=== PATIENT | female | born 1955 ===

== ENCOUNTER 2017-01-26 11:55 | Emergency (ER) | payer MEDICARE, MEDICAID ==
[~2017-01-26] VITALS: Ht 162.6 cm; Wt 87.4 kg
[2017-01-26 11:57] VITALS: BP 155/87; PULSE 90; RESP 16; O2SAT 99
--- NOTE | 2017-01-26 12:07 | ED.REPORT ---
HPI-General Illness Date of Service Jan 26, 2017 ED Provider: Juaquin Amador MD 61 year old female with a history of UTI presents to the ER complaining of a week of dysuria. Associated symptoms include urinary frequency, urinary urgency , low abdominal pain, productive cough with sputum, subjective fever, and nausea. Patient denies back pain and vomiting. She is a poor historian. Nursing Notes Stated Complaint: BLADDER ISSUES Chief Complaint: General Complaint Nursing Notes Reviewed: Yes Allergies: Coded Allergies: codeine (Verified Allergy, Severe, 08/06/09) iodine (Verified Allergy, Mild, HIVES, 08/06/09) Uncoded Allergies: Codeine (Allergy, Severe, 06/24/04) Iodine (Allergy, Mild, HIVES, 06/24/04) Scheduled Cephalexin (Keflex) 500 Mg Capsule 500 MG PO QID General Time Seen by MD: 12:04 Chief Complaint Other (Dysuria) Hx Obtained From: Patient Arrived By: Walk-in Sudden in Onset?: No Onset Occurred: 1 week ago Symptom Duration: Since onset Associated with: Reports: Nausea, Denies: Vomiting Similar Sx Previous: Yes Past Medical History Past Medical History Rheumatoid arthritis Degenerative disk disease Left renal cancer Reports: Asthma, Diabetes mellitus, Hypertension Past Surgical History Left partial nephrectomy Reports: , Cholecystectomy, Hysterectomy Smoking History Current Every Day Smoker Ambulatory Status Independent Review of Systems +Productive Cough Full Review of Systems Constitutional: Reports: Fever (subjective), Malaise GI: Reports: Abdominal pain, Nausea, Denies: Constipation, Diarrhea, Vomiting Female: Reports: Dysuria, Urinary frequency, Urinary urgency, Denies: Flank pain Musculoskeletal: Denies: Back pain, Lumbar pain Complete sys rev & neg: except as marked. Physical Exam Vital Signs Vital Signs Date Time Temp Pulse Resp B/P Pulse Ox O2 Delivery O2 Flow Rate FiO2 01/26/17 11:57 36.4 90 16 155/87 99 Room Air Initial VS: Reviewed Head / Eyes: Atraumatic, Normocephalic Neck: Supple, Non-tender, Full range of motion Extremities: Vascular intact, Neuro intact, No swelling, No tenderness Skin: Warm, Dry, No cyanosis Neurologic: Alert, Oriented, Nonfocal General/Constitutional: Awake, Alert, Well developed, Well nourished Respiratory / Chest: Breath sounds NL, No respiratory distress, No rales, No rhonchi, No wheezing Cardiovascular: Heart rate NL, Regular rhythm, Heart sounds NL, Cap refill not delayed, Peripheral circulation NL Abdomen: Soft, No guarding, No rebound, No distention Tenderness/Guarding/Rebound: Positive: Tender suprapubic Interpretation & Diagnostics Lab Results Interpretation Result Diagram: 01/26/17 1248 01/26/17 1248 Test 01/26/17 12:35 01/26/17 12:48 Urine Color Yellow (YELLOW) Urine Appearance Turbid (CLEAR,HAZY) Urine pH 6.0 (5.0-8.0) Urine Specific [place] 1.025 (1.003-1.035) Urine Protein 100mg/dL (NEG,TRACE) Urine Glucose (UA) 500mg/dL (NEGATIVE) Urine Ketones Negativemg/dL (NEGATIVE) Urine Occult Blood Large (NEGATIVE) Urine Nitrite Negative (NEGATIVE) Urine Bilirubin Negative (NEGATIVE) Urine Urobilinogen Normalmg/dL (NORMAL) Urine Leukocyte Esterase Moderate (NEGATIVE) Urine RBC 0-2/hpf (0-2) Urine WBC Packed/hpf (0-5) Urine Epithelial Cells Occasional/hpf (NONE-MOD) Urine Crystals None seen (NONE SEEN) Urine Bacteria Many/hpf (NONE-FEW) Urine Hyaline Casts None/lpf (NONE) Urine Granular Casts None seen (NONE SEEN) Urine Waxy Casts None seen (NONE SEEN) Urine Red Blood Cell Casts None seen (NONE SEEN) Urine White Blood Cell Casts None seen (NONE SEEN) Urine Mucus None seen (None Seen) Urine Trichomonas None seen (NONE SEEN) Urine Yeast None (NONE SEEN) Urinalysis Comment None Urine Culture Reflexed Indicated White Blood Count 7.6th/mm3 (3.8-10.1) Red Blood Count 4.51mil/mm3 (3.90-5.20) Hemoglobin 13.1g/dL (12.0-15.6) Hematocrit 37.7% (35.0-46.0) Mean Corpuscular Volume 83.6fL (81-100) Mean Corpuscular Hemoglobin 29.0pg (27.0-35.0) Mean Corpuscular Hemoglobin Concent 34.7% (32.0-37.0) Red Cell Distribution Width 13.3% (12.3-15.4) Platelet Count 303bil/L (150-400) Neutrophils (%) (Auto) 67.9% (40-74) Lymphocytes (%) (Auto) 25.0% (14-46) Monocytes (%) (Auto) 6.4% (4-12) Eosinophils (%) (Auto) 0.5% (0-5) Basophils (%) (Auto) 0.1% (0-3) Sodium Level 140mEq/L (134-144) Potassium Level 4.1mEq/L (3.5-5.2) Chloride Level 101mEq/L (97-108) Carbon Dioxide Level 21mmol/L (18-29) Blood Urea Nitrogen 11mg/dL (6-24) Creatinine 0.64mg/dL (0.57-1.00) Estimat Glomerular Filtration Rate 136mL/min (>59) Glucose Level 343mg/dL (60-99) Calcium Level 9.4mg/dL (8.5-10.1) Magnesium Level 1.5mg/dL (1.6-2.6) Total Bilirubin 0.5mg/dL (0.0-1.2) Aspartate Amino Transf (AST/SGOT) 11U/L (0-50) Alanine Aminotransferase (ALT/SGPT) 9U/L (0-32) Alkaline Phosphatase 76U/L (25-165) Total Protein 7.2g/dL (6.4-8.4) Albumin 4.0g/dL (3.4-5.0) Hold Dennis Top Tube Received (Received) Re-Eval/Medical Decision Med Decision/Clinical Course 61-year-old female presenting complaint of dysuria 1 week. Labs are reassuring. Vital signs stable. She has a UTI. Will be treated with Keflex. Return precautions given. Source of Hx: Old records Time of Eval: 13:37 Re-Evaluation/Progress Note: Discussed lab results and plan to discharge. Patient is amenable to the plan. Return precautions given. All other questions addressed. Counseled Regarding: Diagnosis, Lab results, Need for follow-up, When/why to return to ED Discharge & Departure Primary Impression: UTI (urinary tract infection) Disposition: Home Discharge Condition All VS Reviewed: Yes Condition: Stable Patient Instructions: Urinary Tract Infection in Women (DC) Additional Instructions: Your workup today was reassuring. I do not believe that there is any dangerous cause for your symptoms at this time. Your lab results indicate that you have a urinary tract infection. Go home and rest. Drink plenty of fluids. Take the prescribed Keflex as directed. It is important that you finish the entire course of this antibiotic medication, even if you begin to feel better. Tylenol or ibuprofen as directed for pain and/or fever. Call your primary care provider to arrange a follow-up appointment in 1-2 days. Return to the ER if you develop worsening symptoms, fever, chills, blood in your urine, worsening back pain, abdominal pain, nausea/vomiting or any other concerning symptoms. Referrals: [facility] (PCP) [facility] Franko Attestation Portions of this note were transcribed by Coni Faria. I, Dr. Amador, personally performed the history, physical exam and medical decision-making; I reviewed and confirmed the accuracy of the information in the transcribed note. Signed by: Franko Moreira, 01/26/2017 at 13:44 copies to: [facility] Juaquin Amador MD Jan 26, 2017 12:07 CONI FARIA Jan 26, 2017 12:13
[2017-01-26] MEDS ORDERED: 0.9% Sodium Chloride 1,000 ML IV ONE (12:28)
[2017-01-26] MEDS ORDERED: Ondansetron 2 mg/mL 2 mL Inj IVPUSH PRN (12:30)
[2017-01-26 12:53] LABS: APPEARANCE,URINE TURBID (CLEAR,HAZY); COLOR,URINE YELLOW (YELLOW)
[2017-01-26 12:54] LABS: OCCULT BLOOD,URINE LARGE (NEGATIVE); UROBILINOGEN,URINE NORMAL (NORMAL)
[2017-01-26 12:56] LABS: BASOPHILS % (AUTO) 0.1 % (0-3); EOSINOPHILS % (AUTO) 0.5 % (0-5); MONOCYTES % (AUTO) 6.4 % (4-12); Mean Corpuscular Volume 83.6 fL (81-100); NEUTROPHILS % (AUTO) 67.9 % (40-74); Platelet Count 303 bil/L (150-400)
[2017-01-26 13:18] LABS: Magnesium 1.5 mg/dL (1.6-2.6)
[2017-01-26] MEDS ORDERED: CEPH-512 PO (13:35)
== END 2017-01-26 13:47 | disposition home or self-care (01) ==
LOC: SED 11:55
DX: N39.0 Urinary tract infection, site not specified (principal); B96.20 Unspecified Escherichia coli [E. coli] as the cause of diseases classified elsewhere; J45.909 Unspecified asthma, uncomplicated; E11.9 Type 2 diabetes mellitus without complications; I10 Essential (primary) hypertension; F17.200 Nicotine dependence, unspecified, uncomplicated; Z88.5 Allergy status to narcotic agent; Z88.8 Allergy status to other drugs, medicaments and biological substances
CPT/HCPCS: 36415; 80053; 81000; 83735; 85025; 87040; 87086; 87088; 87186; 96361; 96374; 96375; 99285; J2270; J2405; J7030